=== PATIENT | male | born 1940 | race Caucasian/White ===

== ENCOUNTER → 2016-09-27 | Outpatient (CLI) | payer OTHER ==
[~2016-09-27] MED LIST: ATORVASTATIN CA40 MG PO; AZELASTINE HCL6 ML OP; COUMADIN 5 MG TA5 M1 PO; DIPHENHIST50 MG PO; ENOXAPARIN100 MG/11 SUBQ; FISH OIL 1,001000 M2 PO; FLOMAX0.4 MG PO; OMEPRAZOLE40 MG PO; PERCOCET PO; PHENERGAN 25 MG25 MG PO; PRILOSEC40 MG PO; ZANTAC 7575 MG PO; ZOCOR40 MG PO; ZPAK PO; [UNRECOGNIZED DRUG - OTHER] PO
--- NOTE | ~2016-09-27 | 2DMMODE ---
[facility] [email or web address] [address] 2 D/M-MODE ECHOCARDIOGRAM Name: MONTEZ QUINN Room #: REG [facility]#: [id number] Admission: 09/27/16 Attend Phys: Natasha Wong Discharge: Date of : 38 Date of Service: 09/27/16 1521 Report #: [id number] THIS REPORT FOR: //name// APPROVED REPORT Study performed: 09/27/2016 09:55:47 EXAM: Comprehensive 2D, Doppler, and color-flow Echocardiogram Patient Location: Out-Patient Blood Pressure: 166/99 mmHg HR: 78 bpm Rhythm: NSR Other Information Study Quality: Adequate Technically limited study due to body habitus. Indications Pulmonary Hypertension Hx: DVT with pulmonary emboism. HLP 2D Dimensions RVDd: 45.26 mm LVEF(%): 69.85 (>50%) IVSd: 12.11 (7-11mm) LVOT Diam: 22.72 (18-24mm) LVDd: 42.59 mm PWd: 11.48 (7-11mm) Ascending Aorta: 36.61 mm LVDs: 25.95 (25-40mm) Aortic Root: 39.59 mm Carr's LVEF: 69.85 % Volumes Left Atrial Volume (Systole) Single Plane 4CH: 71.48 mL Single Plane 2CH: 58.93 mL LA ESV Index: 33.00 mL/m2 Aortic Valve AoV Peak Gaurang.: 1.33 m/s AO Peak Gr.: 7.11 mmHg LV Max P.13 mmHg LV Max: 1.24 m/s Mitral Valve [facility] [address] [place] [address] 2 D/M-MODE ECHOCARDIOGRAM Name: MONTEZ QUINN Room #: REG [facility]#: [id number] Admission: 09/27/16 Attend Phys: Natasha Wong Discharge: Date of : 38 Date of Service: 09/27/16 1521 Report #: [id number] MV PHT: 78.58 ms MV E Max Gaurang.: 0.93 m/s E/A Ratio: 0.9 MV A Gaurang.: 1.07 m/s MV Decel. Time: 270.96 ms Pulmonary Valve PV Peak Gaurang.: 1.05 m/s PV Peak Gr.: 4.41 mmHg Tricuspid Valve TR Peak Gaurang.: 2.67 m/s RAP Estimate: 10.00 mmHg TR Peak Gr.: 28.48 mmHg RVSP: 38.00 mmHg Left Ventricle The left ventricle is normal size. There is normal LV segmental wall motion. Mild concentric left ventricular hypertrophy. Left ventricular systolic function is normal. LVEF is 60-65%. Grade I - abnormal relaxation pattern. Right Ventricle Right ventricle is mildly dilated. The right ventricular systolic function is normal. Atria Left atrium is borderline dilated. Right atrium is mildly dilated. Aortic Valve The aortic valve is normal in structure. Aortic valve leaflets are mildly thickened. Trace aortic regurgitation. There is no aortic valvular stenosis. Mitral Valve The mitral valve is normal in structure. Trace mitral regurgitation. Tricuspid Valve The tricuspid valve is normal in structure. There is mild to moderate tricuspid regurgitation. The right atrial pressure is estimated at 10 mmHg. There is mild pulmonary hypertension with an estimated PAP of 38mmHg. Pulmonic Valve The pulmonary valve is normal in structure. Trace pulmonic regurgitation. Great Vessels Aortic root is mildly dilated. Ascending aorta measures at the [facility] [address] [place] [address] 2 D/M-MODE ECHOCARDIOGRAM Name: MONTEZ QUINN Room #: [facility]#: [id number] Admission: 09/27/16 Attend Phys: Natasha Wong Discharge: Date of : 38 Date of Service: 09/27/16 1521 Report #: [id number] limits of normal. IVC is dilated and collapses <50% with inspiration. Pericardium Small anterior pericardial effusion. <Conclusion> The left ventricle is normal size. LVEF is 60-65%. Right ventricle is mildly dilated. Left atrium is borderline dilated. Right atrium is mildly dilated. The aortic valve is normal in structure. Aortic valve leaflets are mildly thickened. Trace aortic regurgitation. Trace mitral regurgitation. There is mild to moderate tricuspid regurgitation. The right atrial pressure is estimated at 10 mmHg. There is mild pulmonary hypertension with an estimated PAP of 38mmHg. Trace pulmonic regurgitation. Ascending aorta measures at the upper limits of normal. <ELECTRONICALLY SIGNED> By: Mateo Martin MD 09/27/16 1521 1521 1521 Mateo Martin MD /INF
== END ==
LOC: CV 08:13
DX: I27.2 Other secondary pulmonary hypertension (principal); E78.5 Hyperlipidemia, unspecified

== ENCOUNTER 2017-10-17 10:00 | Emergency (ER) | payer OTHER ==
[~2017-10-17] VITALS: Ht 177.8 cm; Wt 106.6 kg
[2017-10-17] MEDS ORDERED: FLEXERIL PO (10:37)
== END 2017-10-17 10:57 | disposition home or self-care (01) ==
LOC: ER 10:00
DX: M54.2 Cervicalgia (principal); E78.00 Pure hypercholesterolemia, unspecified; N40.0 Benign prostatic hyperplasia without lower urinary tract symptoms; K21.9 Gastro-esophageal reflux disease without esophagitis; Z87.442 Personal history of urinary calculi; Z96.652 Presence of left artificial knee joint; Z86.718 Personal history of other venous thrombosis and embolism

== ENCOUNTER → 2020-06-04 | Outpatient (CLI) | payer OTHER ==
[~2020-06-04] MED LIST changes: -ATORVASTATIN CA40 MG PO; +ELIQUIS5 MG PO; +FLEXERIL PO; +HYDROCODON-ACE1 EAC7 PO; +LIPITOR40 MG PO; +MULTI VITAMIN1 EACH PO
== END ==
LOC: LAB 09:11
PROVIDERS: ATTEND Surgery
DX: Z01.812 Encounter for preprocedural laboratory examination (principal); Z20.828 Contact with and (suspected) exposure to other viral communicable diseases

== ENCOUNTER 2020-06-09 11:55 | Day surgery (SDC) | payer OTHER ==
[~2020-06-09] VITALS: Ht 172.7 cm; Wt 104.3 kg
[~2020-06-09 11:55] MED LIST changes: -HYDROCODON-ACE1 EAC7 PO
[2020-06-09 12:53] LABS: APTT 26.9 Seconds (24.5-32.8); INR 1.1; PROTIME 11.2 Seconds (9.3-11.4)
[2020-06-09 12:55] VITALS: BP 161/80
[2020-06-09] MEDS ORDERED: HYDROCODON-ACE1 EAC7 PO (16:38)
[2020-06-09 16:49] VITALS: BP 161/80
--- NOTE | 2020-06-10 15:59 | O ---
[facility] [place] [address] OPERATIVE REPORT Name: MONTEZ QUINN Room #: DEP [facility]#: [id number] Admission: 06/09/20 Attend Phys: Buck Everett MD Discharge: 06/09/20 Date of : 38 Report #: [id number] THIS REPORT FOR: cc: Maikel Jenkins MD, Neal A. MD Chu,Buck Graham MD ~ DATE OF SERVICE: 06/09/2020 PREOPERATIVE DIAGNOSIS: Left inguinal hernia. POSTOPERATIVE DIAGNOSIS: Left direct inguinal hernia. PROCEDURE PERFORMED: Laparoscopic properitoneal repair of left inguinal hernia. ESTIMATED BLOOD LOSS: 30 mL. ANESTHESIA: General. SURGEON: Buck Everett MD COMPLICATIONS: None. PROCEDURE NOTE: With the patient under general anesthesia, Castillo catheter was placed. The lower abdomen was prepped and draped in sterile fashion. The patient received preoperative IV antibiotics. Timeout was performed. A 2 cm transverse incision was made adjacent to the umbilicus on the left side. Fascia was identified. The rectus fascia anteriorly was incised. The muscle was spread. Space between the muscle and the posterior fascia was dissected bluntly. Balloon trocar was placed. CO2 was placed. There is a vessel in this location that was oozing, this was cauterized. Hemostasis was obtained. A 5 mm trocar was placed. Properitoneal dissection was then carried out. It was noted that the CO2 tracked along the abdominal wall, even subcutaneously. This was due to the patient's poor tissue strength. The second 5 mm trocar was placed. Dissection was carried out freeing the properitoneal space. The patient had obvious direct hernia defect. The fat that pushed into the hernia was reduced. The hernia defect was then identified. There is a small femoral component, this was also reduced. Looking over the cord structure, the peritoneal reflection was identified. There was no indirect sac. There was a moderate cord lipoma that was reduced. The pubic bone was isolated. Once this was performed, a large 3DMax lightweight mesh was then placed in the properitoneal space, this was opened up. The mesh was tacked laterally to the wall, inferiorly to the Daniel's ligament above the pubic bone, superiorly to the rectus muscle. The mesh did seat well, covering the defect well. CO2 was evacuated. Trocars then removed. The fascia defect adjacent to the umbilicus was closed with [facility] [address] [place] [address] OPERATIVE REPORT Name: MONTEZ QUINN [id number] Admission: 06/09/20 Attend Phys: Buck Everett MD Discharge: 06/09/20 Date of : 38 Report #: [id number] Vicryl x 2. Skin was closed with 5-0 PDS at trocar sites. Steri-Strip, Band-Aids applied. The patient tolerated the procedure well. <ELECTRONICALLY SIGNED> By: Buck Everett MD 06/10/20 1559 [id number] Buck Everett MD /elidia
== END 2020-06-09 17:50 | disposition home or self-care (01) ==
LOC: OR 11:55 → TBA 12:29 → OR 14:31
PROVIDERS: ATTEND Surgery
DX: K40.90 Unilateral inguinal hernia, without obstruction or gangrene, not specified as recurrent (principal); E78.00 Pure hypercholesterolemia, unspecified; N40.0 Benign prostatic hyperplasia without lower urinary tract symptoms; K21.9 Gastro-esophageal reflux disease without esophagitis; Z98.890 Other specified postprocedural states; Z87.442 Personal history of urinary calculi; Z87.891 Personal history of nicotine dependence; Z96.652 Presence of left artificial knee joint; Z86.718 Personal history of other venous thrombosis and embolism; Z79.01 Long term (current) use of anticoagulants; Z79.899 Other long term (current) drug therapy
CPT/HCPCS: 50010; 50101; 50411; 50455; 50507; 50555; 50848; 51489; 52265; 53065; 53307; 56525; 56526; 62110; 62900; 70005

== ENCOUNTER 2021-06-21 19:54 | Emergency (ER) | payer OTHER ==
[~2021-06-21] VITALS: Ht 170.2 cm; Wt 104.3 kg
[~2021-06-21 19:54] MED LIST changes: +HYDROCODON-ACE1 EAC7 PO
[2021-06-21 20:00] VITALS: BP 153/86
== END 2021-06-21 22:36 | disposition home or self-care (01) ==
LOC: ER 19:54
DX: S40.022A Contusion of left upper arm, initial encounter (principal); S20.212A Contusion of left front wall of thorax, initial encounter; E78.00 Pure hypercholesterolemia, unspecified; K21.9 Gastro-esophageal reflux disease without esophagitis; Z87.442 Personal history of urinary calculi; Z98.890 Other specified postprocedural states; W01.0XXA Fall on same level from slipping, tripping and stumbling without subsequent striking against object, initial encounter; Y93.89 Activity, other specified; Y92.89 Other specified places as the place of occurrence of the external cause; Y99.8 Other external cause status